=== PATIENT | male | born 1985 | race Caucasian/White ===

== ENCOUNTER 2021-05-01 08:28 | Emergency (ER) | payer OTHER ==
[~2021-05-01 08:28] MED LIST: BACTRIM DS TAB1 EACH PO
[2021-05-01 09:20] LABS: HEMOGLOBIN 18.3 gm/dl (14.0-17.5); RED BLOOD COUNT 5.54 M/UL (4.20-5.50); WHITE BLOOD COUNT 10.1 K/UL (4.5-11.0)
[2021-05-01 09:37] LABS: BUN/CREATININE RATIO 12 (0-10)
[2021-05-01] MEDS ORDERED: BACTROBAN OINT22 GM EXT (12:53)
[2021-05-01] MEDS ORDERED: CEPHALEXIN500 M1 PO (12:53)
[2021-05-01] MEDS ORDERED: DOXYCYCLINE HY100 MG PO (13:02)
== END 2021-05-01 13:04 | disposition home or self-care (01) ==
LOC: ER1 08:28
PROVIDERS: Emergency Medicine
DX: S51.022A Laceration with foreign body of left elbow, initial encounter (principal); S09.90XA Unspecified injury of head, initial encounter; S93.401A Sprain of unspecified ligament of right ankle, initial encounter; Z23 Encounter for immunization; V49.40XA Driver injured in collision with unspecified motor vehicles in traffic accident, initial encounter; Y92.410 Unspecified street and highway as the place of occurrence of the external cause
CPT/HCPCS: 12002; 70450; 71046; 73080; 73090; 73590; 73610; 73630; 80053; 85025; 90471; 90715; 96374; 96375; 99284; J2270; J2405; Q9967